=== PATIENT | male | born 1965 | race Caucasian/White ===

== ENCOUNTER → 2017-11-08 | Outpatient (CLI) | payer BC ==
[2017-11-08 14:36] LABS: Partial Thromboplastin Time 23.9 sec (22.0-30.0); Prothrombin Time 10.1 sec (9.0-12.0)
[2017-11-08 14:37] LABS: Appearance,Urine Clear (Clear); Bilirubin,Urine Negative (Negative); Blood,Urine Negative (Negative); Color,Urine Light Yellow; Glucose,Urine (UA) Negative (Negative); HCT 45.3 % (39.0-53.0); HGB 15.7 gm/dL (13.0-17.5); Ketones,Urine Negative (Negative); Leukocyte Esterase,Urine Negative (Negative); MCH 28.9 pg (25.0-35.0); MCHC 34.6 g/dL (31.0-37.0); MCV 83.5 fL (80.0-100.0); Mean Platelet Volume 7.2; Nitrite,Urine Negative (Negative); Platelet Count 238 k/uL (150-450); Protein,Urine Negative (Negative); RBC 5.43 m/uL (4.30-5.90); RDW 12.9 % (11.5-15.5); Specific Gravity,Urine 1.007 (1.001-1.035); Urobilinogen,Urine <2.0 mg/dL (<2.0); WBC 6.6 k/uL (3.8-10.6)
[2017-11-08 14:42] LABS: ALT 38 U/L (21-72); AST 20 U/L (17-59); Albumin 4.7 g/dL (3.5-5.0); Alkaline Phosphatase 55 U/L (38-126); Anion Gap 15 mmol/L; Blood Urea Nitrogen 20 mg/dL (9-20); Calcium 9.6 mg/dL (8.4-10.2); Carbon Dioxide 24 mmol/L (22-30); Chloride 104 mmol/L (98-107); Glucose 110 mg/dL (74-99); Potassium 3.9 mmol/L (3.5-5.1); Sodium 143 mmol/L (137-145); Total Bilirubin 1.1 mg/dL (0.2-1.3); Total Protein 7.4 g/dL (6.3-8.2)
== END | disposition home or self-care (01) ==
LOC: LABPAT 13:28
PROVIDERS: ATTEND Orthopaedic Surgery
DX: Z01.812 Encounter for preprocedural laboratory examination (principal)
CPT/HCPCS: 36415; 80053; 81003; 85027; 85610; 85730; 86850; 86900; 86901; 87070

== ENCOUNTER 2017-11-16 05:35 | Inpatient (IN) | payer BC ==
[2017-11-10 11:28] VITALS: BMI 35.1
[~2017-11-16 05:35] MED LIST: ACETAMINOPHEN TAB 500 MG TAB PO ONE; DEXAMETHASONE SOD PHOSPHATE 10 MG/ML 1 ML VIAL IV ONE; MELOXICAM 7.5 MG TAB PO ONE; MORPHINE SULFATE 4MG/4ML SYRG IV PRN; ONDANSETRON 4 MG/2 ML VIAL IVP ONE; TRANEXAMIC ACID 1,000 MG in SODIUM CHLORIDE 0.9% 50 ML IVPB ONE; ceFAZolin IN SWFI 2 GM/20 ML SYRINGE IVP ONE
[2017-11-16] MEDS ORDERED: ROPIVACAINE 246.25 MG, EPINEPHrine 0.5 MG, KETOROLAC 30 MG, cloNIDine HCL/PF 80 MCG, WA... MISCELLANE ONE ×5 (05:39)
[2017-11-16] MEDS: LACTATED RINGERS 1,000 ML IV SCH (06:35)
[2017-11-16] MEDS ORDERED: HYDROcodone/APAP 5-325MG 1 EACH TAB PO PRN ×2 (07:02)
[2017-11-16] MEDS ORDERED: NALOXONE 0.4 MG/ML 1 ML VIAL IV PRN (07:02)
[2017-11-16] MEDS ORDERED: DIAZEPAM 5 MG TAB PO PRN ×2 (07:02)
[2017-11-16] MEDS ORDERED: MORPHINE SULFATE 4MG/4ML SYRG IVP PRN ×3 (07:02)
[2017-11-16] MEDS ORDERED: ONDANSETRON 4 MG/2 ML VIAL IVP PRN (07:02)
[2017-11-16] MEDS ORDERED: MAGNESIUM HYDROXIDE 2,400 MG/10 ML CUP PO PRN (07:02)
[2017-11-16] MEDS ORDERED: PROPOFOL 10 MG/ML 20 ML VIAL IV ONE (07:04)
[2017-11-16] MEDS ORDERED: LIDOCAINE 1% INJ 10MG/ML (20 ML MDV) ONE (07:04)
[2017-11-16] MEDS ORDERED: SODIUM CHLORIDE 0.9% 100 ML BAG ONE (07:04)
[2017-11-16] MEDS ORDERED: PHENYLEPHRINE-0.9% NACL SYG 1 MG/10 ML SYRINGE ONE (07:04)
[2017-11-16] MEDS ORDERED: TRANEXAMIC ACID 1,000 MG/10 ML VIAL ONE (07:04)
[2017-11-16] MEDS ORDERED: fentaNYL (PF) 50 MCG/ML 2 ML AMP ONE (07:04)
[2017-11-16] MEDS ORDERED: MIDAZOLAM 2 MG/2 ML VIAL ONE (07:04)
[2017-11-16] MEDS ORDERED: ceFAZolin 3,000 MG in SODIUM CHLORIDE 0.9% IRRIGATIO 3,000 ML IRRIGATION ONE (08:18)
--- NOTE | 2017-11-16 08:33 | P.OP ---
Date of Procedure: 11/16/17 Preoperative Diagnosis: Severe osteoarthritis left hip Postoperative Diagnosis: Severe osteoarthritis left hip Procedure(s) Performed: Left total hip arthroplasty with a direct anterior approach Implants: Bradley and nephew Polarstem size 2 standard Bradley [employer] Nephew R3, 3 hole acetabular shell, 54 mm Bradley [employer] Nephew reflection 6.5 mm cancellus screw, 20 mm 2 Bradley [employer] Nephew R3, XLPE 20 acetabular liner Bradley & Nephew Oxinium femoral head 36 m, +4 All components were press-fit. The articulation is Oxinium on polyethylene. Anesthesia: spinal Surgeon: Maik Medrano Swatcher #1: Yamile Wyatt Estimated Blood Loss (ml): 200 (100 mL returned with Cell Saver) Pathology: other (Femoral head) Condition: stable Disposition: PACU Indications for Procedure: After failure of conservative treatment we discussed the surgical and nonsurgical treatment options at length. Patient wishes to proceed with a total hip arthroplasty with a direct anterior approach. Complications specific to this procedure were discussed at length, including but not limited to infection, leg length discrepancy, dislocation, and nerve injury. Patient is aware of all these complications and informed consent was obtained Operative Findings: The operative findings are consistent with severe osteoarthritis of the left hip Description of Procedure: Patient was seen and evaluated in the preoperative area, consent was reviewed, and the surgical site was marked with a skin marker. Patient was then brought to the operating room and given prophylactic antibiotics intravenously. 1 g of Tranexamic acid was also given. A spinal anesthetic was administered by the anesthesia department. The patient was then placed on the Sligo table with the bony prominences well-padded. The hip area was then prepped and draped in usual sterile fashion. A universal timeout was then performed, which confirmed the patient's name, surgical site, ALLERGIES, and procedure being performed. Next the incision site was located at 1 cm distal and 1 cm lateral to the anterior superior iliac spine. The skin and subcutaneous tissues were sharply incised. Incision was carefully dissected down to the fascia overlying the tensor fascia faviola muscle. This fascia was then incised in line with the incision. Next, using blunt finger dissection, the tensor fascia faviola muscle was dissected off its investing fascia. The muscle was then carefully retracted laterally with a cobra retractor over the lateral neck of the femur. Next, the circumflex vessels were identified and cauterized using the AquaMantis device. The anterior hip capsule was then exposed. The capsule was then opened and an inverted T fashion. Cobra retractors were then placed intracapsularly. The proximal femur was then visualized. The femoral neck was then osteotomized appropriate level above the lesser trochanter. Small amount of traction was placed with the Sligo table. A small wedge of bone was then removed from the remaining femoral head. Next, using a corkscrew femoral head was easily removed from the acetabulum. On gross visual inspection, the femoral head had complete loss of articular cartilage in multiple periarticular osteophytes. Attention was then turned to the acetabulum. the acetabulum was exposed and any remaining labrum was excised. Sequential reaming of the acetabulum was performed using fluoroscopic guidance. When the appropriate size was reached, a trial was then placed. The position and fit of the trial was checked with fluoroscopy. The trial was then removed. Then, using fluoroscopic guidance, the final implant was impacted at 20 of anteversion and 40 of abduction, and fully seated in the acetabulum. 2 screws were then placed in the acetabulum. Again fluoroscopy was used to check position of the screws. Next, the liner was then impacted, with a 20 elevated liner located in the anterior superior quadrant. Component locking was confirmed. Attention was then directed to the femur. With the aid of the Sligo table, the femur was externally rotated to approximately 130, extended, and abducted under the opposite leg. A side hook was then placed under the proximal femur, and the side hook elevator was used to elevate the proximal femur. Retractors were then placed. A capsular release was performed, as well as a release of the conjoined tendon, which afforded excellent visualization of the proximal femur. Next, a box osteotome was used to lateralize the proximal femur. A hand blocker was then used to locate the femoral canal. Sequential broaching was then performed with appropriate size which afforded excellent fixation in the proximal femur. A trial was then placed with appropriate head and neck, and the hip was gently reduced with the aid of the Sligo table. Fluoroscopy was then used to check position of the components, as well as to ensure equal leg lengths. The hip was then gently dislocated and the trials were then removed. Final implants were then impacted and the hip was again reduced. Final fluoroscopic x-rays confirmed that the components were in anatomic position, as well as equal leg lengths. The hip was also taken through range of motion, and found to be stable. The hip was then copiously irrigated with antibiotic solution with pulsatile lavage. The hip was then irrigated with Irrisept solution. The soft tissues were then injected with a ropivacaine solution, which consisted of 246.25 mg of ropivacaine, 0.5 mg of epinephrine, 30 mg of Toradol, 80 g of clonidine, and 48.45 mL of sterile water, for a total of 100 mL of fluid injected. A second dose of 1 g of Tranexamic acid was also given. the fascia was then closed with 2-0 strata fix suture. The subcutaneous tissue was closed with 3-0 Vicryl. The subcuticular tissue was closed with 3-0 strata fix suture. The skin was then closed with Dermabond glue and a sterile silver dressing. The patient was then transferred to the recovery room in stable condition. The web assistant SAUNDRA Urbina was required due to the complexity of surgery, and the need for skilled surgical services asst for positioning, draping, exposure, retraction, and closure of the wound.
[2017-11-16] MEDS ORDERED: LACTATED RINGERS 1,000 ML IV ONE (08:35)
--- NOTE | 2017-11-16 08:36 | XR ---
Limited left hip HISTORY: Hip replacement 2 intraoperative C-arm images document the procedure
--- NOTE | 2017-11-16 08:37 | FL ---
Fluoroscopy HISTORY: Hip replacement 47 seconds fluoroscopy time supplied to the referring clinician. 2 intraoperative C-arm images docum ent the procedure. See dictated report from orthopedic surgery.
--- NOTE | 2017-11-16 09:16 | XR ---
Limited left hip HISTORY: Postop Single frontal view of the left hip Patient is status post left hip arthroplasty. Lucency in the soft tissues compatible with postop stat e. There is anatomic alignment. Technique somewhat limited. IMPRESSION: Orthopedic follow-up. Follow-up as indicated, exam is somewhat limited technically.
[2017-11-16] MEDS ORDERED: HYDROcodone/APAP 7.5-325MG 1 EACH TAB PO PRN (16:08)
[2017-11-16] MEDS: ceFAZolin IN SWFI 2 GM/20 ML SYRINGE IVP SCH ×2 (16:13→23:18)
[2017-11-16] MEDS: SODIUM CHLORIDE 0.9% 1,000 ML IV SCH ×2 (16:15→23:01)
[2017-11-16] MEDS: HYDROcodone/APAP 7.5-325MG 1 EACH TAB PO PRN ×2 (16:17→21:28)
[2017-11-16] MEDS: hydrOXYzine PAMOATE 25 MG CAP PO PRN ×2 (16:18→21:26)
--- NOTE | 2017-11-16 16:27 | XR ---
Left knee HISTORY: Left knee pain 3 views of the left knee, no comparisons Bone mineralization, joint spaces and alignment are maintained. No fracture or dislocation. There may be minimal joint effusion. Small calcification present along the patellar tendon is well-corticated and not felt likely to be acute. 2 mm calcification in the suprapatellar region could represent a sma ll loose body. IMPRESSION: May be minimal joint effusion, calcifications as described, consider synovial osteochondr omatosis.
--- NOTE | 2017-11-16 16:44 | P.CONS ---
History of Present Illness - Reason for Consult Preoperative complication management - History of Present Illness 52-year-old male admitted for left hip arthrosis exisulind underwent surgery comparing of severe knee pain. Probably related to have his hip surgery she doesn't have any major medical problems patient doesn't have any fever chills dysuria. Patient is already on multiple opiates, not to use any more but can try nonsteroidal anti-inflammatories with the GI prophylaxis. Review of Systems REVIEW OF SYSTEMS: CONSTITUTIONAL: No fever, no malaise, no fatigue. HEENT: No recent visual problems or hearing problems. Denied any sore throat. CARDIOVASCULAR: No chest pain, orthopnea, PND, no palpitations, no syncope. PULMONARY: No shortness of breath, no cough, no hemoptysis. GASTROINTESTINAL: No diarrhea, no nausea, no vomiting, no abdominal pain. Normoactive bowel sounds. NEUROLOGICAL: No headaches, no weakness, no numbness. HEMATOLOGICAL: Denies any bleeding or petechiae. GENITOURINARY: Denies any burning micturition, frequency, or urgency. MUSCULOSKELETAL/RHEUMATOLOGICAL: As mentioned above ENDOCRINE: Denies any polyuria or polydipsia. The rest of the 14-point review of systems is negative. Past Medical History Past Medical History: GERD/Reflux, Osteoarthritis (OA) History of Any Multi-Drug Resistant Organisms: None Reported Additional Past Surgical History / Comment(s): wisdom teeth,colonoscopy Past Anesthesia/Blood Transfusion Reactions: No Reported Reaction Additional Past Anesthesia/Blood Transfusion Reaction / Comm: no hx of general anesthesia or blood transfusions Past Psychological History: No Psychological Hx Reported Smoking Status: Never smoker Past Alcohol Use History: Occasional Past Drug Use History: None Reported - Past Family History Mother Family Medical History: Diabetes Mellitus Additional Family Medical History / Comment(s): Parkinson's Father Family Medical History: Cancer Additional Family Medical History / Comment(s): prostate Medications and Allergies Home Medications Medication Instructions Recorded Confirmed Type Acetaminophen [Tylenol Arthritis] 650 mg PO Q6H PRN 11/10/17 11/16/17 History Allergies Allergy/AdvReac Type Severity Reaction Status Date / Time No Known Allergies Allergy Verified 11/16/17 10:11 Physical Exam Vitals: Vital Signs Temp Pulse Pulse Resp BP Pulse Ox 11/16/17 11:40 75 104/73 11/16/17 11:30 74 115/76 11/16/17 11:15 74 117/69 11/16/17 11:00 77 121/86 11/16/17 10:45 85 156/78 11/16/17 10:30 79 152/92 11/16/17 10:15 79 109/72 11/16/17 10:00 75 112/78 11/16/17 09:45 98.7 F 77 16 128/73 95 11/16/17 09:30 72 16 112/68 96 11/16/17 09:15 70 16 112/70 95 11/16/17 09:00 71 18 110/69 96 11/16/17 08:45 97 F L 82 16 103/61 93 L 11/16/17 06:35 98.6 F 95 16 147/95 95 Intake and Output 11/16/17 11/16/17 11/16/17 06:59 14:59 22:59 Intake Total 1038 Output Total 350 Balance 688 Intake: IV 801 Oral 237 Output: Urine 150 Estimated Blood Loss 200 PHYSICAL EXAMINATION: GENERAL: The patient is alert and oriented x3, not in any acute distress. Well developed, well nourished. HEENT: Pupils are round and equally reacting to light. EOMI. No scleral icterus. No conjunctival pallor. Normocephalic, atraumatic. No pharyngeal erythema. No thyromegaly. CARDIOVASCULAR: S1 and S2 present. No murmurs, rubs, or gallops. PULMONARY: Chest is clear to auscultation, no wheezing or crackles. ABDOMEN: Soft, nontender, nondistended, normoactive bowel sounds. No palpable organomegaly. MUSCULOSKELETAL: Deferred to arthritic surgery Deferred to arthritic surgerying, or pedal edema. NEUROLOGICAL: Gross neurological examination did not reveal any focal deficits. SKIN: No rashes. Assessment and Plan Plan: -Knee pain probably from left hip surgery which is a referred pain pain management and DVT prophylaxis as per primary service -Severe osteoarthritis She doesn't have any major medical problems I'll continue to follow on as- needed basis thank you for letting me participate in the patient's care.
[2017-11-16] MEDS: ASPIRIN 325 MG TAB PO SCH (20:16)
[2017-11-16] MEDS ORDERED: SENNOSIDES-DOCUSATE SODIUM 1 EACH TAB PO SCH (21:00)
[2017-11-17] MEDS: HYDROcodone/APAP 7.5-325MG 1 EACH TAB PO PRN (03:47)
[2017-11-17] MEDS: hydrOXYzine PAMOATE 25 MG CAP PO PRN (03:47)
[2017-11-17] MEDS: LACTATED RINGERS 1,000 ML IV SCH (05:50)
[2017-11-17 07:48] LABS: Basophils % (A) 0 %; Eosinophils % (A) 0 %; HCT 36.9 % (39.0-53.0); HGB 12.9 gm/dL (13.0-17.5); Lymphocytes # (A) 2.1 k/uL (1.0-4.8); Lymphocytes % (A) 22 %; MCH 29.5 pg (25.0-35.0); MCHC 34.9 g/dL (31.0-37.0); MCV 84.6 fL (80.0-100.0); Mean Platelet Volume 7.1; Monocytes # (A) 0.6 k/uL (0-1.0); Monocytes % (A) 6 %; Neutrophils # (A) 6.5 k/uL (1.3-7.7); Neutrophils % (A) 70 %; Platelet Count 224 k/uL (150-450); RBC 4.36 m/uL (4.30-5.90); RDW 13.1 % (11.5-15.5); WBC 9.3 k/uL (3.8-10.6)
[2017-11-17] MEDS: ASPIRIN 325 MG TAB PO SCH (08:03)
[2017-11-17] MEDS ORDERED: MELOXICAM 7.5 MG TAB PO SCH (09:00)
--- NOTE | 2017-11-17 09:08 | P.DS ---
Providers Date of admission: 11/16/17 05:35 Expected date of discharge: 11/17/17 Attending physician: Maik Medrano Consults: 11/16/17 07:02 Consult Physician Routine Consulting Provider: Kadi Lees Consult Reason/Comments: medical management Do you want consulting provider notified?: Yes 11/16/17 09:09 Consult Physician Routine Consulting Provider: Chuck Hernandez Consult Reason/Comments: Medical Management Do you want consulting provider notified?: Yes Primary care physician: Kadi Lees - Discharge Diagnosis(es) (1) Primary osteoarthritis of left hip Current Visit: Yes Status: Acute (2) S/P total hip arthroplasty Current Visit: Yes Status: Acute Hospital Course: This is a 52-year-old male who with known history of degenerative arthritis of the left hip. The patient presents for evaluation. After discussion and consideration patient elects to proceed with total hip arthroplasty. The patient is seen preoperatively by Dr. Medrano and medically cleared for surgery by their primary care physician. Patient is admitted to [facility] on 11/16/2017 for total hip arthroplasty. The procedures performed without complication or sequelae. The patient is doing well postoperatively. Labs and vital signs are stable on day of discharge. Patient did have left knee pain on postoperative day 0, x-rays of the left knee are reviewed and are negative for fracture or dislocation. Patient's symptoms of left knee pain have now resolved. Patient has been up and walking without difficulty. On day of discharge patient's hip incision is healing well. There is minimal erythema. There is no drainage noted at this time. There is minimal soft tissue swelling to the hip and thigh. Patient has full foot and ankle motion without difficulty or pain. Neurovascular status to the left lower extremity is intact. Patient is discharged home in good condition. Please see med rec for accurate list of home medications. Plan - Discharge Summary Discharge Rx Participant: Yes New Discharge Prescriptions: New Aspirin 325 mg PO BID #60 tab HYDROcodone/APAP 7.5-325MG [Haw[place] 7.5-325] 1 - 2 tab PO Q4-6H PRN #90 tab PRN Reason: Pain Sennosides [Senokot] 1 tab PO BID #60 tablet No Action Acetaminophen [Tylenol Arthritis] 650 mg PO Q6H PRN PRN Reason: Pain Discharge Medication List Acetaminophen [Tylenol Arthritis] 650 mg PO Q6H PRN 11/10/17 [History] Aspirin 325 mg PO BID #60 tab 11/17/17 [Rx] HYDROcodone/APAP 7.5-325MG [Haworth 7.5-325] 1 - 2 tab PO Q4-6H PRN #90 tab [Rx] Sennosides [Senokot] 1 tab PO BID #60 tablet 11/17/17 [Rx] Follow up Appointment(s)/Referral(s): Kadi Lees DO [Primary Care Provider] - 1 Week Maik Medrano DO [Doctor of Osteopathic Medicine] - 2 Weeks Activity/Diet/Wound Care/Special Instructions: Weightbearing as tolerated with walker Leave dressing intact. Dressing may be removed by home care nurse in 10-14 days. May shower with dressing on. Follow-up with [facility] in 2 weeks, please call with any questions or concerns [phone] Discharge Disposition: HOME WITH HOME HEALTH SERVICES
[2017-11-17 15:00] VITALS: BP 117/70; PULSE 95; RESP 18; TEMP 97.8
== END 2017-11-17 15:20 | disposition home health service (06) | DRG 470 ==
LOC: 2ORMAIN 05:35 → 3SUR 08:43
PROVIDERS: ADMIT Orthopaedic Surgery; ATTEND Orthopaedic Surgery
PROC: 0SRB06A Replacement of Left Hip Joint with Oxidized Zirconium on Polyethylene Synthetic Substitute, Uncemented, Open Approach (ICD-10-PCS; principal; 2017-11-16 07:00)
DX: M16.12 Unilateral primary osteoarthritis, left hip (principal); K21.9 Gastro-esophageal reflux disease without esophagitis; Z79.891 Long term (current) use of opiate analgesic; Z83.3 Family history of diabetes mellitus; Z82.0 Family history of epilepsy and other diseases of the nervous system; Z80.42 Family history of malignant neoplasm of prostate; Z79.51 Long term (current) use of inhaled steroids
CPT/HCPCS: 73501; 85025; 86850; 86900; 86901; 88300

== ENCOUNTER 2019-01-24 06:22 | Emergency (ER) | payer BC ==
[2019-01-24 07:44] LABS: Appearance,Urine Clear (Clear); Bilirubin,Urine Negative (Negative); Blood,Urine Negative (Negative); Color,Urine Yellow; Glucose,Urine (UA) Negative (Negative); Ketones,Urine Negative (Negative); Leukocyte Esterase,Urine Small (Negative); Mucus,Urine Few /hpf; Nitrite,Urine Negative (Negative); Protein,Urine Trace (Negative); RBC,Urine 1 /hpf (0-5); Specific Gravity,Urine 1.016 (1.001-1.035); WBC,Urine 5 /hpf (0-5)
--- NOTE | 2019-01-24 07:52 | ED ---
General Adult HPI - General Chief complaint: Urogenital Stated complaint: male Time Seen by Provider: 01/24/19 07:30 Source: patient, RN notes reviewed, old records reviewed Mode of arrival: ambulatory Limitations: no limitations - History of Present Illness Initial comments: Patient is a healthy [id number] male presents emergency department today complaining of penile irritation. Patient ports that he's noticed some blood whenever he pays, states that the scan of his penis that is irritated. Patient states that he has had no other significant symptoms, he did report some mild dysuria earlier this past week. He did return recently from a cruise to [place]. Denies any concern for 60 transmitted infection. Denies any back pain, fevers or chills. - Related Data Home Medications Medication Instructions Recorded Confirmed Acetaminophen Tab [Tylenol Tab] 1,000 mg PO Q6H PRN 01/24/19 01/24/19 Amoxicillin 875 mg PO Q12H 01/24/19 01/24/19 Pseudoephedrine HCl [Children's 30 mg PO Q4-6H PRN 01/24/19 01/24/19 Sudafed] Previous Rx's Medication Instructions Recorded Mupirocin 2% Oint [Bactroban 2% 1 applic TOPICAL TID #30 gm 01/24/19 Oint] Nystatin 100,000 Unit/gm Oint 1 applic TOPICAL TID #30 gm 01/24/19 [Mycostatin Oint] Nystatin 100,000 Unit/gm Powd 1 applic TOPICAL BID #60 gm 01/24/19 [Mycostatin Powder] Allergies Allergy/AdvReac Type Severity Reaction Status Date / Time No Known Allergies Allergy Verified 01/24/19 07:50 Review of Systems ROS Statement: Those systems with pertinent positive or pertinent negative responses have been documented in the HPI. ROS Other: All systems not noted in ROS Statement are negative. Past Medical History Past Medical History: GERD/Reflux, Osteoarthritis (OA) History of Any Multi-Drug Resistant Organisms: None Reported Past Surgical History: Joint Replacement Additional Past Surgical History / Comment(s): wisdom teeth,colonoscopy Past Anesthesia/Blood Transfusion Reactions: No Reported Reaction Additional Past Anesthesia/Blood Transfusion Reaction / Comment(s): no hx of general anesthesia or blood transfusions Past Psychological History: No Psychological Hx Reported Smoking Status: Never smoker Past Alcohol Use History: Occasional Past Drug Use History: None Reported - Past Family History Mother Family Medical History: Diabetes Mellitus Additional Family Medical History / Comment(s): Parkinson's Father Family Medical History: Cancer Additional Family Medical History / Comment(s): prostate General Exam - General Exam Comments Initial Comments: This is a 33-year-old male. Alert and oriented 3. No distress. Limitations: no limitations General appearance: alert, in no apparent distress Head exam: Present: atraumatic, normocephalic, normal inspection Eye exam: Present: normal appearance, PERRL, EOMI. Absent: scleral icterus, conjunctival injection, periorbital swelling ENT exam: Present: normal exam, mucous membranes moist Neck exam: Present: normal inspection. Absent: tenderness, meningismus, lymphadenopathy Respiratory exam: Present: respiratory distress Cardiovascular Exam: Present: regular rate, normal rhythm, normal heart sounds. Absent: systolic murmur, diastolic murmur, rubs, gallop, clicks GI/Abdominal exam: Present: soft, normal bowel sounds. Absent: distended, tenderness, guarding, rebound, rigid exam: Present: normal inspection, other (Patient has erythema and excoriation over the head of the penis and shaft. This is bright red, concerning for candidal infection.) Extremities exam: Present: normal inspection, full ROM, normal capillary refill. Absent: tenderness, pedal edema, joint swelling, calf tenderness Back exam: Present: normal inspection Neurological exam: Present: alert, oriented X3, CN II-XII intact Course Vital Signs 01/24/19 06:32 Temperature 99.0 F Pulse Rate 107 H Respiratory 20 Rate Blood Pressure 136/84 O2 Sat by Pulse 97 Oximetry Medical Decision Making - Medical Decision Making 53-year-old male presents today with penile irritation. Patient has evidence of candidal rash over the end of the penis and shaft. Patient has some Prelone smegma noted as well. Patient will be started on mupirocin ointment as well as nystatin ointment. Discussed following up with his primary care doctor. All questions answered. - Lab Data Lab Results 01/24/19 Range/Units 07:25 Urine Color Yellow Urine Appearance Clear (Clear) Urine pH 6.0 (5.0-8.0) Ur Specific [place] 1.016 (1.001-1.035) Urine Protein Trace H (Negative) Urine Glucose (UA) Negative (Negative) Urine Ketones Negative (Negative) Urine Blood Negative (Negative) Urine Nitrite Negative (Negative) Urine Bilirubin Negative (Negative) Urine Urobilinogen 4.0 (<2.0) mg/dL Ur Leukocyte Esterase Small H (Negative) Urine RBC 1 (0-5) /hpf Urine WBC 5 (0-5) /hpf Urine Mucus Few H (None) /hpf Disposition Clinical Impression: Penile rash Disposition: HOME SELF-CARE Condition: Good Instructions (If sedation given, give patient instructions): Skin Yeast Infection (ED) Additional Instructions: Keep the area clean and dry. Patient should alternate her few hours and antibiotic ointment and the antifungal ointment. Also keep area dry with antifungal powder. Have close follow-up with her primary care doctor. Prescriptions: Mupirocin 2% Oint [Bactroban 2% Oint] 1 applic TOPICAL TID #30 gm Nystatin 100,000 Unit/gm Oint [Mycostatin Oint] 1 applic TOPICAL TID #30 gm Nystatin 100,000 Unit/gm Powd [Mycostatin Powder] 1 applic TOPICAL BID #60 gm Is patient prescribed a controlled substance at d/c from ED?: No Referrals: Kadi Lees DO [Primary Care Provider] - 1-2 days Time of Disposition: 08:18
[2019-01-24 08:40] VITALS: BP 125/92; PULSE 95; RESP 18; TEMP 99.1
== END 2019-01-24 08:40 | disposition home or self-care (01) ==
LOC: EC 06:22
DX: R21 Rash and other nonspecific skin eruption (principal); B37.89 Other sites of candidiasis; N48.89 Other specified disorders of penis; R30.0 Dysuria
CPT/HCPCS: 81001; 87070; 87086; 87205; 99284

== ENCOUNTER → 2021-11-27 | Outpatient (CLI) | payer BC ==
--- NOTE | 2021-11-27 12:28 | P.STRESS ---
- Stress Test Note Stress Test Results/Findings: Exam Performed: stress test Exam Date: 11/27/21 Reason for Exam: CP Height: 5 ft 9 in Weight: 107.048 kg Protocol: ELSI Stage: 3 Duration of Exercise: 9:00 Resting Heart Rate: 89 Resting Blood Pressure: 136/85 Maximum Achieved Heart Rate: 158 Maximum Achieved Blood Pressure: 203/103 85% PMHR: 138 100% PMHR: 162 METS: 10.3 Technologist Comment: Stress Test Results/Findings: This is a 56-year-old gentleman with history of chest pain being evaluated for Cardec status. Stress data:. Baseline EKG showed sinus rhythm with normal FL interval and QRS duration. Blood pressure at rest is 136/85 with pulse rate of 89. Patient walked on the Elsi protocol for 9 minutes achieving a maximum rate of 158 with a blood pressure 180/96. EKGs taken during and after exercise did not reveal any significant changes of ischemia. Occasional PVCs are noted. Patient did not experience any chest pain. Final impression: #1. Negative stress test #2. Patient did not experience any chest pain #3. No arrhythmias are detected #4. Patient's exercise capacity is good
--- NOTE | 2021-11-28 14:22 | EST ---
Stress Test Results/Findings: Exam Performed: stress test Exam Date: 11/27/21 Reason for Exam: CP Height: 5 ft 9 in Weight: 107.048 kg Protocol: ELSI Stage: 3 Duration of Exercise: 9:00 Resting Heart Rate: 89 Resting Blood Pressure: 136/85 Maximum Achieved Heart Rate: 158 Maximum Achieved Blood Pressure: 203/103 85% PMHR: 138 100% PMHR: 162 METS: 10.3 Technologist Comment: Stress Test Results/Findings: This is a 56-year-old gentleman with history of chest pain being evaluated for Cardec status. Stress data:. Baseline EKG showed sinus rhythm with normal MD interval and QRS duration. Blood pressure at rest is 136/85 with pulse rate of 89. Patient walked on the Elsi protocol for 9 minutes achieving a maximum rate of 158 with a blood pressure 180/96. EKGs taken during and after exercise did not reveal any significant changes of ischemia. Occasional PVCs are noted. Patient did not experience any chest pain. Final impression: #1. Negative stress test #2. Patient did not experience any chest pain #3. No arrhythmias are detected #4. Patient's exercise capacity is good MTDD
== END | disposition home or self-care (01) ==
LOC: RADNMMAIN 09:42
PROVIDERS: ATTEND Family Medicine
DX: R07.9 Chest pain, unspecified (principal)
CPT/HCPCS: 93017